=== PATIENT | female | born 2005 | race Hispanic/Latino ===

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

== ENCOUNTER 2024-11-21 22:02 | Emergency (ER) | payer SELFPAY ==
--- NOTE | ~2024-11-21 | XR_ITS ---
EXAMINATION: XR knee LT 3V, 11/21/2024 22:30 CDT HISTORY: pain and swelling COMPARISON: No comparisons available. Findings: No acute fracture or malalignment. No significant degenerative changes. Soft tissues unremarkable. Impression: No acute fracture or malalignment. Reviewed, dictated and finalized at location P. Impression: No acute fracture or malalignment.
[2024-11-21 22:16] VITALS: BP 132/87; PULSE 103; RESP 20; TEMP 36.6; O2SAT 100
[2024-11-22 04:00] VITALS: BP 126/83; PULSE 92; RESP 18; O2SAT 99
--- NOTE | 2024-11-22 04:18 | ED.LOWEXIN ---
HPI - Extremity Injury (Lower) General Chief Complaint: Extremity Injury, Lower Stated Complaint: left knee injury Time Seen by Provider: 11/22/24 03:34 Source: patient and family ( father) Mode of arrival: ambulatory Limitations: no limitations History of Present Illness HPI Narrative: Patient presents with concern for left knee injury/pain. She was playing flag football and she jumped up and subsequently felt like she landed wrong when she came down. She states her knee popped out with lateral displacement and then she shoved it back in place. She now continues to feel a sense of tightness and pressure in her left knee. She has not been able to bear weight due to the pain which she describes as 4/10 severity at rest. She did not hit her head or have other injuries. She has never had any issues with this extremity or seen orthopedic surgery for any reason. She has not taken any medications prior to arrival. She confirms that his primary care physician. Not on anticoagulation. Related Data Allergies Allergy/AdvReac Type Severity Reaction Status Date / Time No Known Allergies Allergy Verified 11/21/24 22:12 [facility] Family History Family History Mother Hypertension Grandparent Cancer Social History Social History Smoking status: Never smoker Alcohol intake: never Exam Narrative: GENERAL: Well-appearing, well-nourished, and in no acute distress. HEAD: Normocephalic, atraumatic. EYES: Non injected, non icteric ENT: Nares clear, no rhinorrhea or epistaxis. Gross auditory acuity intact. NECK: Supple. No meningismus. CHEST: Speaking in full sentences. No respiratory distress. HEART: Tachycardic rate and rhythm. . ABDOMEN: Soft, nondistended. No rigidity or guarding. Not peritoneal EXTREMITIES: No lower extremity edema. Left knee effusion. Castro as anatomically correctly located. No expanding hematoma in the popliteal fossa. Patient does have effusion around her left knee but which is otherwise not tender to palpation. Extremities warm and well perfused with strong palpable left DP pulse. After analgesics medication is given, patient is better able to perform range of motion exercises including demonstrating extension and flexion of the knee. No TTP of proximal tibia or distal femur SKIN: Warm, dry, no rash. No abrasion, laceration, ecchymosis. NEURO: No focal deficits. Alert and oriented. Answering questions. Following commands. Normal speech without aphasia or dysarthria. Sensation intact throughout left lower extremity. PSYCH: Normal mood and affect. Course Vital Signs Vital signs: Vital Signs Temperature 97.8 F 11/21/24 22:16 Pulse Rate 103 H 11/21/24 22:16 Respiratory Rate 20 11/21/24 22:16 Blood Pressure 132/87 11/21/24 22:16 Pulse Oximetry 100 11/21/24 22:16 Temperature 98.2 F 11/22/24 06:35 Pulse Rate 91 11/22/24 06:35 Respiratory Rate 16 11/22/24 06:35 Blood Pressure 130/80 11/22/24 06:35 Pulse Oximetry 100 11/22/24 06:35 MDM - Extremity Injury (Lower) MDM Narrative Medical decision making narrative: Patient presents with report of left knee injury/pain in which she was playing flag football in jumped up and when she came down landed wrong. She reports that her knee popped out of place and describes what sounds to be a lateral patellar dislocation which was subsequently relocated prior to arrival in the emergency department she states it was popped back in place. In the emergency department she is afebrile with vital signs that show mild tachycardia. [place] ordered. Because Dr. Reynolds, the orthopedic surgeon does like to be notified about all patient's when he is on-call, I did discuss this patient with him at 5:30 a.m.. He agrees with knee immobilization and following up in 1 week. Advised her to call later today for an appointment and to make it for 1 week if possible as he likes follow-up to be in this time frame so that she can start physical therapy appropriately. Otherwise stable for discharge. Prescribed [id number] analgesic medications. Differential Diagnosis Differential diagnosis: Likely acute internal derangement of knee and other (patellar dislocation (with subsequent relocation); considered vascular injury; lower suspicion of occult/tibial plateau fracture although considered; considered patellar fracture) Imaging Data Attestation: I personally reviewed and interpreted this imaging study as follows: My impression: Negative on my independent interpretation of plain film Discharge Plan Discharge Clinical Impression: Acute pain of left knee Patient Disposition: Home Condition: Stable Instructions: Antibiotic Form, Swollen Knee Joint (ED), Knee Pain (ED), Patellar Dislocation (ED), Knee Immobilizer (ED) Additional Instructions: What you described was a patellar dislocation followed by reduction. The orthopedic surgeon does recommend that you follow-up in a week. Call the clinic as listed below today and advise that he wanted to see you in a week to make that appointment. Acetaminophen/Tylenol (maximum 5000 mg per day) is safe to take with NSAIDs (ibuprofen/Motrin) for pain relief. Return to the emergency department any new or worsening symptoms. Patient Language: Persian Prescriptions: New acetaminophen 650 mg tablet extended release 650 mg PO Q8H PRN (Reason: pain) Qty: 30 0RF ibuprofen 600 mg tablet 600 mg PO TID PRN (Reason: pain) Qty: 30 0RF Follow-up/Referrals: Ryder,JONES Mejia [Primary Care Provider, Family Practice] Reese Reynolds MD [Physician, Orthopedics] Stand Alone Forms: Work/School Release IP Time of Disposition: 05:42
[2024-11-22] MEDS: HYDROcodone/acetaminophen (*CRX) 5-325 MG TABLET 1 TAB PO (04:48)
[2024-11-22 06:33] VITALS: BP 130/80; PULSE 91; RESP 16; TEMP 36.8; O2SAT 100
[2024-11-22 06:35] VITALS: BP 130/80; PULSE 91; RESP 16; TEMP 36.8; O2SAT 100
== END 2024-11-22 06:36 | disposition home or self-care (01) ==
PROVIDERS: Emergency Provider Student in an Organized Health Care Education/Training Program; PCP Physician Assistant
DX: S89.92XA Unspecified injury of left lower leg, initial encounter (principal); X50.9XXA Other and unspecified overexertion or strenuous movements or postures, initial encounter; Y93.62 Activity, american flag or touch football
CPT/HCPCS: 73562; 99283; A9270